=== PATIENT | male | born 1985 | race Caucasian/White ===

== ENCOUNTER → 2022-08-26 17:11 | Outpatient (CLI) | payer BC, SELFPAY ==
[2022-08-26 19:19] LABS: Urine N gonorrhoeae NOT DETECTED
[2022-08-26 19:44] LABS: Urine Chlamydia NOT DETECTED
[2022-08-28 16:34] LABS: HIV 1 & 2 Ab/Ag 4th Gen Combo NEGATIVE (NEGATIVE); Hep C Virus Ab w/Reflex Quant NEGATIVE s/c (NEGATIVE)
[2022-08-29 07:23] LABS: RPR Screen Non Reactive (Non Reactive)
[2022-08-29 10:49] LABS: HSV 2 IGG AB < 0.91 index (0.00-0.90); Hepatitis B Core AB w/Reflex Negative (Negative)
== END ==
PROVIDERS: Referring Provider Registered Nurse; Visit Provider Registered Nurse
DX: Z20.2 Contact with and (suspected) exposure to infections with a predominantly sexual mode of transmission; Z11.3 Encounter for screening for infections with a predominantly sexual mode of transmission
CPT/HCPCS: 36415; 86592; 86695; 86696; 86704; 86803; 87389; 87491; 87591

== ENCOUNTER 2024-12-30 12:41 | Emergency (ER) | payer BC, SELFPAY ==
[2024-12-30] VITALS (12 sets, daily range): BP systolic 105–137; BP diastolic 62–76; PULSE 75–105; RESP 14–17; TEMP 36.6–36.8; O2SAT 95–100; BMI 26.4
--- NOTE | 2024-12-30 13:19 | DI.RAD.S_ITS ---
PROCEDURE: XR CHEST 1V INDICATIONS: suspected sepsis TECHNIQUE: One view of the chest was acquired. COMPARISON: None. FINDINGS: Surgical changes and devices: None. Lungs and pleura: Lungs are clear. No pleural effusions or pneumothorax. Mediastinum: Mediastinal contours appear normal. Heart size is normal. Bones and chest wall: No suspicious bony lesions. Overlying soft tissues appear unremarkable. IMPRESSION: No acute pulmonary process. Dictated by: Alicia Collins M.D. on 12/30/2024 at 14:07 Approved by: Alicia Collins M.D. on 12/30/2024 at 14:07
--- NOTE | 2024-12-30 13:35 | EKG_ITS ---
[address] [address] Test Date: 2024-12-30 Pat Name: Toan Parish Department: Room: Gender: Male [employer] Cook: MARIBEL : 1985 Requested By: Order Number: [id number] Reading MD: Sanya Mendes Measurements Intervals [place] Rate: 88 P: 61 VT: 142 QRS: 61 QRSD: 80 T: 44 QT: 344 QTc: 416 Interpretive Statements Sinus rhythm with marked sinus arrhythmia Electronically Signed On 12-31-2024 16:24:22 PDT by Sanya Mendes
[2024-12-30 13:56] LABS: Add Manual Diff / Slide Review NO; Basophils Absolute Auto 0 /uL (0-100); Basophils Percent Auto 0.5 % (0-2); Eosinophils Absolute Auto 400 /uL (0-450); Eosinophils Percent Auto 4.7 % (2-4); Hematocrit 43.3 % (41-53); Hemoglobin 14.9 g/dL (13.5-17.5); Lymphocytes Absolute Auto 2100 /uL (1100-4500); Lymphocytes Percent Auto 22.4 % (25-40); Mean Corpuscular HGB Conc 34.5 % (30-36); Mean Corpuscular Hemoglobin 29.8 PG (26-34); Mean Corpuscular Volume 86.4 fL (80-100); Monocytes Absolute Auto 900 /uL (0-900); Monocytes Percent Auto 9.2 % (3-14); Neutrophils Absolute Auto 5900 /uL (1500-7000); Neutrophils Percent Auto 63.2 % (50-75); Platelet Count 260 X10^3/uL (150-400); Red Blood Cell Count 5.01 X10^6/uL (4.5-5.9); Red Cell Distribution Width 13.5 % (11.6-14.8); White Blood Cell Count 9.4 X10^3/uL (4.5-11.0)
[2024-12-30 14:05] LABS: INR 1.1 (0.9-1.3); Prothrombin Time 12.5 SECONDS (9.4-12.5)
[2024-12-30 14:07] LABS: PTT Partial Thromboplastin Tim 35 SECONDS (25.1-36.5)
[2024-12-30] MEDS: SODIUM CHLORIDE 0.9% 1,000 ML 1000 ML IV (14:08)
[2024-12-30 14:21] LABS: Alanine Aminotransferase 42 IU/L (<50); Albumin 4.5 g/dL (3.5-5.0); Albumin Globulin Ratio 1.3 (1.0-2.8); Alkaline Phosphatase 63 U/L (38-126); Aspartate Aminotransferase 30 IU/L (17-59); BUN Creatinine Ratio 10.4 (6-22); Bilirubin Total 0.8 mg/dL (0.2-1.3); Blood Urea Nitrogen 12 mg/dL (9-20); Calcium 9.5 mg/dL (8.4-10.2); Carbon Dioxide 25 mmol/L (22-32); Chloride 104 mmol/L (98-107); Estimated Glomerular Filt Rate > 60 mL/min (>60); Globulin 3.4 g/dL (1.7-4.1); Glucose 101 mg/dL (70-99); HEMOLYSIS < 15 (0-50); Lipase 52 U/L (23-300); Potassium 4.1 mmol/L (3.4-5.1); Sodium 139 mmol/L (137-145); Total Protein 7.9 g/dL (6.3-8.2)
[2024-12-30 14:22] LABS: Lactate (Lactic Acid) 1.9 mmol/L (0.7-2.1)
--- NOTE | 2024-12-30 14:24 | PC.NURSE ---
Pt sitting on stretcher in position of comfort. Pt states that pain is to left hip and pain increases when doing movment to left hip, slight increase of pain on palp, no redness, swelling of deformity noted on initial exam of hip. Pt denies any trauma to site. Call light within reach, A&Ox4, RA, breathing even/equal/unlabored at this time.
[2024-12-30 14:38] LABS: Procalcitonin 0.317 ng/mL (<0.5)
--- NOTE | 2024-12-30 15:45 | PC.NURSE ---
Pt ambulated to restroom with crutches. This RN and pt's noticed that pt's left leg appears redder and more swollen than right. Pt c/o pain to left hip, about the same. RA, A&Ox4, breathing [place]/equal/unlabored at this time. Call light within reach, no other needs at this time
[2024-12-30] MEDS: KETOROLAC 30 MG/ML VIAL 15 MG IV (17:55)
--- NOTE | 2024-12-30 18:03 | ED.GENADULT ---
HPI - General Adult General Chief complaint: Fever Stated complaint: back/hip pain - can't use left leg, fever Time Seen by Provider: 12/30/24 17:44 Source: patient, RN notes reviewed and old records reviewed Mode of arrival: Ambulatory Limitations: no limitations History of Present Illness HPI narrative: 39-year-old male no reported medical issues presents with complaint of left hip pain. Patient states he did have some fevers 1 or 2 days ago and some chills. Patient states no headaches, no nasal congestion, no cough or cold symptoms. No chest pain or shortness of breath. No nausea or vomiting. No GI or urinary symptoms. No new numbness tingling or weakness. No saddle anesthesia. patient states he was pain in his left hip he does not really think he has been to pain in his back. Is painful to lift move in his weightbear. Patient denies any trauma or injuries but notes he has been working on his car that he might be sore from this. Patient has had back issues in the past but denies hip issues. He denies any swelling redness or other skin changes. Patient denies any other symptoms. States no daily medications. No prior surgeries. No tobacco, no regular alcohol, denies any recreational drugs. States allergic to penicillin states unsure of reaction from when he was very small but he was had amoxicillin cephalexin in the past without issue. Related Data Previous Rx's ?Medication ?Instructions ?Recorded hydrocodone 5 mg-acetaminophen 325 1 tab PO Q6H PRN pain #7 tabs 12/30/24 mg tablet Allergies Allergy/AdvReac Type Severity Reaction Status Date / Time Penicillins Allergy Mild Unknown Verified 12/30/24 13:19 Review of Systems Review of Systems ROS Unobtainable: All systems reviewed & are unremarkable except as noted in HPI and below Patient History Social History Smoking Status: Never smoker Smoking Status: Never smoker Exam Narrative Exam Narrative: GEN: well nourished, well appearing male, alert and oriented x 3, patient appears to be in mild distress. HEENT: Atraumatic, pupils are equal round reactive to light, extraocular movements are intact, nares are clear, there is no conjunctival pallor. Throat is clear without any exudates, erythema, tonsillar enlargement or uvular deviation, No meningeal signs. HEART: Regular rate and rhythm without murmur, clicks, rubs. LUNGS:Lungs clear to auscultation, no wheezes, rales, crackles, chest moves symmetrically ABD:bowel sounds normal, soft, non-tender, no guarding, rebound, rigidity, no masses noted, no hepatosplenomegaly :No CVA tenderness BACK: No cervical, thoracic or lumbar vertebral point tenderness. Patient has normal range of motion. No saddle anesthesia. Muscle strength is 5/5 in lower extremities. Dorsalis pedis and tibialis pulses are 2+ and lower extremities. Sensation is intact in the lower extremities. MSCL: Non-tender, Full range of motion of the left lower extremity, no warmth erythema or swelling of the extremity. Patient has nontender on exam. 2+ pulses bilateral lower extremities.no muscle atrophy, muscles strength 5/5 upper and lower extremities, full range of motion, normal gait NEURO:CN 2-12 intact, sensation normal. SKIN: No rash, no erythema or other skin changes. Initial Vital Signs Initial Vital Signs: Vital Signs Temperature 97.8 F 12/30/24 13:15 Pulse Rate 105 H 12/30/24 13:15 Respiratory Rate 17 12/30/24 13:15 Blood Pressure 137/68 12/30/24 13:15 Pulse Oximetry 98 12/30/24 13:15 Oxygen Delivery Method Room Air 12/30/24 13:15 Course Orders Ordered: Discontinued Medications Hydrocodone Bitart/Acetaminophen (Hydrocodone/Acet 5/325 Prepack) 1 bottle MISC DIRECTED ONE Stop: 12/30/24 19:54 Last Admin: 12/30/24 20:05 Dose: 1 bottle Documented By: LUPE Sodium Chloride (Normal Saline 0.9%) 1,000 mls @ 1,000 mls/hr IV BOLUS ONE Stop: 12/30/24 14:18 Last Infusion: 12/30/24 16:12 Dose: Infused Documented By: Admin: 12/30/24 14:08 Dose: 1,000 mls/hr Documented By: ARASH Ketorolac Tromethamine (Ketorolac 30 Mg/Ml Vial) 15 mg IV NOW ONE Stop: 12/30/24 17:50 Last Admin: 12/30/24 17:55 Dose: 15 mg Documented By: ARASH Morphine Sulfate (Morphine 4 Mg/Ml Inj) 4 mg IV NOW ONE Stop: 12/30/24 18:55 Last Admin: 12/30/24 19:17 Dose: 4 mg Documented By: LUPE Ondansetron HCl (Ondansetron 4 Mg/2 Ml Inj) 4 mg IV NOW PRN PRN Reason: Nausea And Vomiting Last Admin: 12/30/24 19:16 Dose: 4 mg Documented By: LUPE Ondansetron HCl (Ondansetron 4 Mg Odt) 4 mg PO NOW PRN PRN Reason: Nausea And Vomiting Vital Signs Vital signs: Vital Signs - 8 hr 12/30/24 13:15 12/30/24 14:08 12/30/24 14:10 Temperature 97.8 F Pulse Rate 105 H 80 83 Respiratory Rate 17 Blood Pressure 137/68 Pulse Oximetry 98 100 100 Oxygen Delivery Method Room Air 12/30/24 14:10 12/30/24 14:30 12/30/24 14:30 Temperature Pulse Rate 79 Respiratory Rate Blood Pressure 105/62 110/73 Pulse Oximetry 99 Oxygen Delivery Method 12/30/24 14:30 12/30/24 14:30 12/30/24 15:00 Temperature Pulse Rate 75 Respiratory Rate Blood Pressure 110/73 110/73 Pulse Oximetry 98 Oxygen Delivery Method 12/30/24 15:00 12/30/24 15:30 12/30/24 15:30 Temperature Pulse Rate 85 Respiratory Rate Blood Pressure 107/65 114/76 Pulse Oximetry 98 Oxygen Delivery Method 12/30/24 15:43 12/30/24 15:43 12/30/24 16:00 Temperature Pulse Rate 83 98 H Respiratory Rate Blood Pressure 119/67 Pulse Oximetry 100 99 Oxygen Delivery Method 12/30/24 16:00 12/30/24 16:30 12/30/24 16:30 Temperature 98.3 F Pulse Rate 88 88 Respiratory Rate 16 Blood Pressure 116/69 118/66 Pulse Oximetry 98 98 Oxygen Delivery Method Room Air 12/30/24 17:00 12/30/24 17:00 Temperature Pulse Rate 76 Respiratory Rate Blood Pressure 108/70 Pulse Oximetry 99 Oxygen Delivery Method Medical Decision Making Lab Data 12/30/24 13:47 12/30/24 13:47 Labs: Lab Results 12/30/24 Range/Units 13:47 WBC 9.4 (4.5-11.0) X10^3/uL RBC 5.01 (4.5-5.9) X10^6/uL Hgb 14.9 (13.5-17.5) g/dL Hct 43.3 (41-53) % MCV 86.4 (80-100) fL MCH 29.8 (26-34) PG MCHC 34.5 (30-36) % RDW 13.5 (11.6-14.8) % Plt Count 260 (150-400) X10^3/uL Neut % (Auto) 63.2 (50-75) % Lymph % (Auto) 22.4 L (25-40) % [place] % (Auto) 9.2 (3-14) % Eos % (Auto) 4.7 H (2-4) % Baso % (Auto) 0.5 (0-2) % Neut # (Auto) 5900 (3177-5302) /uL Lymph # (Auto) 2100 (0411-5854) /uL [place] # (Auto) 900 (0-900) /uL Eos # (Auto) 400 (0-450) /uL Baso # (Auto) 0 (0-100) /uL PT 12.5 (9.4-12.5) SECONDS INR 1.1 (0.9-1.3) APTT 35 (25.1-36.5) SECONDS Sodium 139 (137-145) mmol/L Potassium 4.1 (3.4-5.1) mmol/L Chloride 104 (98-107) mmol/L Carbon Dioxide 25 (22-32) mmol/L BUN 12 (9-20) mg/dL Creatinine 1.15 (0.66-1.25) mg/dL Estimated GFR > 60 (>60) mL/min BUN/Creatinine Ratio 10.4 (6-22) Glucose 101 H (70-99) mg/dL Lactate 1.9 (0.7-2.1) mmol/L Calcium 9.5 (8.4-10.2) mg/dL Total Bilirubin 0.8 (0.2-1.3) mg/dL AST 30 (17-59) IU/L ALT 42 (<50) IU/L Alkaline Phosphatase 63 (38-126) U/L Total Protein 7.9 (6.3-8.2) g/dL Albumin 4.5 (3.5-5.0) g/dL Globulin 3.4 (1.7-4.1) g/dL Albumin/Globulin Ratio 1.3 (1.0-2.8) Lipase 52 (23-300) U/L Procalcitonin 0.317 (<0.5) ng/mL Urine Dip Bedside Urine Glucose Negative Bedside Urine Bilirubin - Negative Bedside Urine Ketone - Negative Urine Specific [place] 1.015 Bedside Urine Occult Blood - Negative Bedside Urine pH 6.5 Bedside Urine Protein +/- 15 Bedside Urine Urobilinogen - Negative Bedside Urine Nitrite - Negative Bedside Urine Leukocytes - Negative Esterase Point of care testing: Urine Dip Bedside Urine Glucose Negative Bedside Urine Bilirubin - Negative Bedside Urine Ketone - Negative Urine Specific [place] 1.015 Bedside Urine Occult Blood - Negative Bedside Urine pH 6.5 Bedside Urine Protein +/- 15 Bedside Urine Urobilinogen - Negative Bedside Urine Nitrite - Negative Bedside Urine Leukocytes - Negative Esterase MDM Narrative Medical decision making narrative: Labs show white count 9.4 hemoglobin of 14 platelets of 260, coags are negative electrolytes are appropriate glucose is 101 lactate is 1.9 LFTs are negative procalcitonin 0.317. Blood cultures are pending. point of care urine is negative. Chest x-ray is negative for acute pulmonary process. Hip xray shows no acute change Patient had fluids, Toradol. 39-year-old male with complaint of left hip pain does note some fevers and chills has a last 1-2 days but denies any other symptoms. He had but does note that he has been a lot of time working on his car the other day and does have some generalized muscle aches but no other trauma. He denies any other infectious symptom. exam is overall benign. Lab workup does not show any acute source. Discussed COVID/influenza / RSV testing but patient defers. Did discuss possibility of septic joint but patient's labs, workup and findings make this seem less likely but did discuss strict return precautions. Patient had good range of motion prior to any major pain medications does note that he was increased pain with ambulation but also notes that he has been lying on the ground recently. Discussed if he develops increasing redness, increasing pain difficulty with ambulation persistent fevers or other changes he should return for re-evaluation. Discharge Plan Departure Patient Disposition: Home Clinical Impression: Hip pain, left Activity Restrictions/Additional Instructions: Follow up for recheck next 2-3 days if you are not having any improvement. You can take acetaminophen up to a 1000 mg every 6 hours and /or ibuprofen 600 mg every 6 hours as needed for pain. If inadequate for pain you can take [place] 1-2 tablets every 6 hours as needed for pain. This medication can make you sleepy do not drive, perform hazardous activities or make any major decisions while taking it. This medication will make you constipated please take a stool softener once to twice daily until stools are soft and regular. Please return if you have new or worsening symptoms, persistent fevers, increasing pain, new numbness, weakness, loss of bowel or bladder control, new redness or skin changes, or other new or concerning changes. Prescriptions: New hydrocodone-acetaminophen 5-325 mg tablet 1 tab PO Q6H PRN (Reason: pain) Qty: 7 0RF Referrals: Miscellaneous,Doctor, MD [Primary Care Provider, Medical] Stand Alone Forms: Patient Portal/API/Survey
--- NOTE | 2024-12-30 18:13 | DI.RAD.S_ITS ---
PROCEDURE: XR HIP W PEL IF DONE LT 2V INDICATIONS: left hip pain TECHNIQUE: AP pelvis with lateral view(s) of the left hip(s). COMPARISON: None. FINDINGS: Bones: No fractures or dislocations. Pelvic ring appears intact. No suspicious bony lesions. Soft tissues: The visualized bowel gas pattern is normal. No suspicious soft tissue calcifications. IMPRESSION: No acute bony abnormality. Dictated by: Margaret Waters M.D. on 12/30/2024 at 19:34 Approved by: Margaret Waters M.D. on 12/30/2024 at 19:34
[2024-12-30] MEDS: ONDANSETRON 4 MG/2 ML INJ IV (19:16)
[2024-12-30] MEDS: MORPHINE 4 MG/ML INJ IV (19:17)
[2024-12-30] MEDS: HYDROCODONE/ACET 5/325 PREPACK 1 BOTTLE MISC (20:05)
== END 2024-12-30 20:14 | disposition home or self-care (01) ==
PROVIDERS: Student in an Organized Health Care Education/Training Program; Emergency Provider Emergency Medicine
DX: M25.552 Pain in left hip (principal); R50.9 Fever, unspecified
CPT/HCPCS: 36415; 71045; 73502; 80053; 81003; 83605; 83690; 84145; 85025; 85610; 85730; 87040; 93005; 96361; 96374; 96375; 99284; J1885; J2270; J2405